=== PATIENT | female | born 1945 | race Two or more races ===

== ENCOUNTER 2024-12-28 16:10 | Emergency (ER) | payer OTHER ==
[~2024-12-28] VITALS: Ht 157.5 cm; Wt 63.5 kg
[~2024-12-28 16:10] MED LIST: CALTRATE 600 +1 EACH; HYDROCHLOROTHIA25 MG; ZOCOR20 MG
[2024-12-28] MEDS ORDERED: COZAAR25 MG (16:48)
[2024-12-28] MEDS ORDERED: BENZONATATE 100 MG CAPSULE PO STA (17:42)
[2024-12-28] MEDS ORDERED: ACETAMINOPHEN 500 MG GEL..CAP PO STA (17:42)
[2024-12-28] MEDS ORDERED: ACETAMINOPHEN 500 MG GEL..CAP PO ONE (17:56)
[2024-12-28 18:39] LABS: BASO % 0.5 % (0.1-1.2); HEMATOCRIT 40.9 % (34.1-44.9); LYMPH # 1.12 (1.18-3.74); LYMPH % 19.6 % (19.3-53.1); MEAN CORPUSCULAR HEMOGLOBIN 26.9 pg (25.6-32.2); MONO # 0.82 (0.24-0.82); NEUT # 3.73 (1.56-6.13); NEUT % 65.3 % (34.0-71.1); PLATELET COUNT 228 K/uL (163-369); RED BLOOD COUNT 4.84 M/uL (3.93-5.22); RED CELL DISTRIBUTION WIDTH 13.1 % (11.6-14.4)
[2024-12-28 18:48] LABS: COVID-19 AG POSITIVE (NEGATIVE)
[2024-12-28 18:49] LABS: POTASSIUM 4.4 mEq/L (3.5-5.1)
[2024-12-28 18:51] LABS: INFLUENZA A AG NEGATIVE (NEGATIVE)
[2024-12-28 18:56] LABS: ALBUMIN 3.7 gm/dL (3.4-5.0); BILIRUBIN TOTAL 0.4 mg/dL (0.3-1.2); CALCIUM 9.2 mg/dL (8.5-10.1); CREATININE SERUM 0.82 mg/dL (0.55-1.02); GFR 66.91; GLOBULINA 4.5 G/DL (2.4-3.5); TOTAL PROTEIN 8.2 gm/dL (6.4-8.2)
[2024-12-28 19:01] LABS: MONO % 14.4 % (4.7-12.5)
[2024-12-28] MEDS ORDERED: GILTUSS HONEY118 ML PO (20:29)
[2024-12-28] MEDS ORDERED: PAXLOVID 150-11 EAC1 PO (20:29)
== END 2024-12-28 20:47 | disposition home or self-care (01) ==
LOC: ER 17:13
PROVIDERS: General Practice
DX: U07.1 COVID-19 (principal); K21.9 Gastro-esophageal reflux disease without esophagitis; I10 Essential (primary) hypertension; E78.49 Other hyperlipidemia; R73.03 Prediabetes

== ENCOUNTER 2025-06-15 10:02 | Emergency (ER) | payer OTHER ==
[~2025-06-15] VITALS: Ht 152.4 cm; Wt 54.4 kg
[~2025-06-15 10:02] MED LIST changes: +COZAAR25 MG; +GILTUSS HONEY118 ML PO; +PAXLOVID 150-11 EAC1 PO
[2025-06-15] MEDS ORDERED: 0.9 % SODIUM CHLORIDE 1,000 ML IV ONE (10:45)
[2025-06-15] MEDS ORDERED: KETOROLAC TROMETHAMINE 30 MG VIAL IV ONE (10:45)
[2025-06-15] MEDS ORDERED: ONDANSETRON HCL 2 MG/ML VIAL IV ONE (10:45)
[2025-06-15] MEDS ORDERED: FAMOTIDINE/PF 20 MG/2 ML VIAL IV ONE (10:45)
[2025-06-15] MEDS ORDERED: ONDANSETRON HCL 2 MG/ML VIAL ONE (10:58)
[2025-06-15] MEDS ORDERED: KETOROLAC TROMETHAMINE 30 MG VIAL ONE (10:58)
[2025-06-15] MEDS ORDERED: FAMOTIDINE/PF 20 MG/2 ML VIAL ONE (10:59)
[2025-06-15 11:25] LABS: BASO % 0.2 % (0.1-1.2); EOS # 0.00 (0.04-0.54); EOS % 0.0 % (0.7-7.0); LYMPH # 0.55 (1.18-3.74); LYMPH % 9.4 % (19.3-53.1); MEAN PLATELET VOLUME 9.60 fl (9.4-12.4); MONO # 0.18 (0.24-0.82); MONO % 3.1 % (4.7-12.5); NEUT # 5.10 (1.56-6.13); NEUT % 87.0 % (34.0-71.1); RED CELL DISTRIBUTION WIDTH 12.9 % (11.6-14.4)
[2025-06-15 11:27] LABS: ERYTHROCYTE SEDIMENTATION RATE 38 mm/hr (0-30)
[2025-06-15 12:03] LABS: INR 1.04
[2025-06-15 12:38] LABS: ALT/SGPT 16.0 U/L (12-78); AST/SGOT 16.0 U/L (15-37); BILIRUBIN TOTAL 0.36 mg/dL (0.3-1.2); BUN CREA RATIO 22.0 (7.0-25.0); CREATININE SERUM 0.73 mg/dL (0.55-1.02); GFR 76.51; GLOBULINA 4.0 G/DL (2.4-3.5); GLUCOSE FASTING 136.0 mg/dL (65-100); OSMOLALITY SERUM 285.0 MOSM/KG (275-295)
[2025-06-15 14:40] LABS: URINE APPEARANCE Clear; URINE BILIRRUBIN Negative (NEGATIVE); URINE BLOOD Negative; URINE COLOR Yellow; URINE GLUCOSE Negative (NEGATIVE); URINE KETONE 15 (NEGATIVE); URINE LEUKOCYTE Negative; URINE NITRATE Negative; URINE PROTEIN 30 (NEGATIVE); URINE UROBILINOGEN 0.2 E.U./dl
[2025-06-15 14:44] LABS: URINE BACTERIA 15.5 uL (0.0-1933); URINE EPITHELIAL CELLS 6.5 uL (0.0-38.8); URINE RBC 6.0 uL (0.0-20.8); URINE WBC 6.5 uL (0.0-23.2)
[2025-06-15] MEDS ORDERED: ENALAPRILAT DIHYDRATE 1.25 MG/ML VIAL IV ONE (16:00)
[2025-06-15 16:12] LABS: URINE CAST 0.14 uL (0.0-1.40)
[2025-06-15] MEDS ORDERED: INTESTINEX680 M1 PO (16:47)
[2025-06-15 18:50] VITALS: BP 160/81; O2SAT 98
== END 2025-06-15 18:53 | disposition home or self-care (01) ==
LOC: ER 10:02
DX: K52.89 Other specified noninfective gastroenteritis and colitis (principal); K57.30 Diverticulosis of large intestine without perforation or abscess without bleeding; K44.9 Diaphragmatic hernia without obstruction or gangrene; I10 Essential (primary) hypertension
CPT/HCPCS: 36415; 96365; 96366; 99283; J1885; J2405; J3490; J7030; Q9965